=== PATIENT | male | born 1980 | race Caucasian/White ===

== ENCOUNTER 2018-11-26 21:25 | Observation (INO) ==
[2018-11-26] MEDS ORDERED: Nitroglycerin 0.4 MG TAB.SUBL SL PRN (21:44)
--- NOTE | 2018-11-26 21:47 | Emergency Department Note ---
Disposition Clinical Impression: Chest pain Qualifiers: Chest pain type: unspecified Qualified Code(s): R07.9 - Chest pain, unspecified Disposition: Admitted As Inpatient Condition: Fair General Adult HPI - General Stated complaint: Chest Pain Time Seen by Provider: 11/26/18 21:32 Nursing Notes Reviewed: Yes Vital Signs Reviewed: Yes - History of Present Illness HPI Narrative: 38-year-old male presents emergency Department concern for sudden onset of sharp chest pain and generalized weakness. Patient reports that his follow up all had heart attack couple weeks ago. Reports that he experienced an episode of generalized weakness about a week ago. States that he did not have any chest pain at that time. Reports that he is also painting at home. States that he does not typically paint. Patient has past medical history of hypertension, no previous coronary artery disease. He denies any fevers, cough, abdominal pain, nausea, vomiting, diaphoresis. Pain does not radiate anywhere, located on the right side of his chest, reproducible chest wall tenderness to palpation,. - Related Data Home Medications Medication Instructions Recorded Confirmed Lisinopril [Zestril] 40 mg PO DAILY 11/27/18 11/27/18 Allergies Allergy/AdvReac Type Severity Reaction Status Date / Time No Known Allergies Allergy Verified 11/26/18 21:53 All systems ED: reviewed and negative except as stated. Review of Systems: As Per HPI Constitutional: Denies: fever Cardiovascular: Reports: chest pain Respiratory: Denies: dyspnea Gastrointestinal: Denies: abdominal pain, nausea, vomiting Genitourinary: Denies: dysuria Musculoskeletal: Denies: back pain Neurological: Reports: headache, weakness Past Medical History - Past Medical History Attestation: Yes The following information was validated with the patient. Physical Exam - General Limitations: no limitations General appearance: alert, in no apparent distress - Head Head exam: normocephalic - Eye Eye exam: Present: EOMI - ENT ENT exam: mucous membranes moist - Neck Neck exam: Present: trachea midline - Chest Chest inspection: Present: symmetric chest wall rise - Respiratory Respiratory exam: Present: normal lung sounds bilaterally. Absent: respiratory distress, accessory muscle use - Cardiovascular Cardiovascular exam: Present: regular rate, normal rhythm, normal heart sounds - Abdominal Exam Abdominal exam: Present: soft, Non-Tender. Absent: distention, guarding, rebound, rigidity - Extremities Exam Extremities exam: Present: normal capillary refill - Back Exam Back exam: Present: full ROM - Neurological Exam Neurological exam: Present: alert, oriented X3 - Psychiatric Psychiatric exam: Present: normal affect, normal mood - Skin Skin exam: Present: warm, dry, intact, normal color. Absent: rash Course Vital Signs Temperature 98.2 F 11/26/18 21:41 Pulse Rate 79 11/26/18 21:41 Respiratory Rate 20 11/26/18 21:41 Blood Pressure 162/83 11/26/18 21:41 O2 Sat by Pulse Oximetry 100 11/26/18 21:41 Temperature 98.6 F 11/27/18 03:06 Pulse Rate 52 11/27/18 03:06 Respiratory Rate 16 11/27/18 03:06 Blood Pressure 128/75 11/27/18 03:06 O2 Sat by Pulse Oximetry 98 11/27/18 03:06 Oxygen Delivery Oxygen Delivery Room Air Medical Decision Making - MDM Narrative Medical decision making narrative: 38-year-old male presents emergency department with concern for sudden onset c hest pain prior to arrival. History of hypertension. Patient's chest pain responded to nitroglycerin completely. EKG did not show any ischemic changes. Troponin was negative. We did obtain a d-dimer and this was negative, chest x- ray did not reveal any cardiopulmonary abnormality. Due to concerns for recurrence of his chest pain, patient admitted to the hospital. Stable not in acute distress at the time of admission. - Lab Data Result diagrams: 11/26/18 22:05 11/26/18 22:05 Lab Results 11/26/18 11/26/18 11/26/18 Range/Units 22:05 22:05 22:05 WBC 3.7 L (4.3-11.1) K/mcL RBC 5.31 (4.19-5.50) M/mcL Hgb 14.8 (12.9-16.9) g/dL Hct 43.5 (37.5-50.1) % MCV 81.9 L (83.0-100.0) fL MCH 27.9 L (28.0-33.3) pg MCHC 34.0 (31.6-35.5) g/dL RDW 12.9 (11.5-14.5) % Plt Count 141 (140-400) K/mcL MPV 10.1 (9.4-12.4) fL Immature Gran % 0.5 (0-4) % Seg Neutrophils % 56.4 % Lymphocytes % 33.7 % Monocytes % 6.2 % Eosinophils % 2.7 % Basophils % 0.5 % Neutrophils # 2.1 (1.6-8.9) K/mcL Lymphocytes # 1.3 (0.6-4.6) K/mcL Monocytes # 0.2 (0.0-1.3) K/mcL Eosinophils # 0.1 (0.0-0.6) K/mcL Basophils # 0.0 (0.0-0.2) K/mcL D-Dimer < 215 (0-500) ng/mLFEU Sodium 138 (136-145) mEq/L Potassium 3.3 L (3.5-5.1) mEq/L Chloride 99 (98-107) mEq/L Carbon Dioxide 23 (23-29) mEq/L BUN 20 (6-20) mg/dL Creatinine 1.05 (0.70-1.30) mg/dL Est GFR ( Amer) > 60 (> 60) Est GFR (Non-Af Amer) > 60 (> 60) BUN/Creatinine Ratio 19 (6-26) Glucose 163 H (70-105) mg/dL Calculated Osmolality 292 (280-300) Calcium 8.9 (8.6-10.3) mg/dL Troponin I < 0.03 (< 0.04) ng/mL - EKG Data EKG #1 EKG attestation: Yes I reviewed and interpreted this EKG. EKG results narrative: 21:32 Heart rate 75 bpm, NV interval 179 ms, QRS duration 122 ms, QT [address] changes noted. Attestation Statement - Attestation Attestation: Dr. Ruiz note: Patient seen in conjunction with emergency medicine resident Dr. Tyler Stephenson. Please see his charting for complete documentation. I spent [id number] time with the patient and I agree with the patient's treatment and disposition. Patient complains of diaphoresis and left arm pain at rest while at home somet alexa around 8 PM. Denies such symptoms prior. Vague chest pain in route to the ER which had resolved. No diaphoresis or left arm pain at the time my evaluation. Initial EKG testing and blood work unremarkable. Patient was offered repeat troponin in the ER versus admission versus discharge for ou tpatient stress testing and is very concerned about his condition and is opting for admission to the hospital this time. Admitted pain-free in stable condition. Heart Score - Score History: Highly Suspicious EKG: Normal Age: Less than 45 Risk Factors: 1-2 risk factors Troponin: Less than normal limit HEART Score Total: 3
[2018-11-26] MEDS ORDERED: 0.9 % Sodium Chloride 1,000 ML IVC ONE (21:53)
[2018-11-26 22:24] LABS: Basophils % 0.5 %; Eosinophils # 0.1 K/mcL (0.0-0.6); Eosinophils % 2.7 %; Hematocrit 43.5 % (37.5-50.1); Hemoglobin 14.8 g/dL (12.9-16.9); Immature Granulocytes % 0.5 % (0-4); Lymphocytes # 1.3 K/mcL (0.6-4.6); Lymphocytes % 33.7 %; Mean Corpuscular Hemoglobin 27.9 pg (28.0-33.3); Mean Corpuscular Volume 81.9 fL (83.0-100.0); Mean Platelet Volume 10.1 fL (9.4-12.4); Monocytes # 0.2 K/mcL (0.0-1.3); Monocytes % 6.2 %; Neutrophils # 2.1 K/mcL (1.6-8.9); Platelet Count 141 K/mcL (140-400); Red Blood Count 5.31 M/mcL (4.19-5.50); Red Cell Distribution Width 12.9 % (11.5-14.5); Segmented Neutrophils % 56.4 %
[2018-11-26 22:45] LABS: BUN/Creatinine Ratio 19 (6-26); Blood Urea Nitrogen 20 mg/dL (6-20); Calcium 8.9 mg/dL (8.6-10.3); Carbon Dioxide 23 mEq/L (23-29); Chloride 99 mEq/L (98-107); Glucose 163 mg/dL (70-105); Osmolality,Calculated 292 (280-300); Potassium 3.3 mEq/L (3.5-5.1); Sodium 138 mEq/L (136-145); eGFR For Non-African Americans > 60 (> 60)
[2018-11-26 22:46] LABS: Troponin I < 0.03 ng/mL (< 0.04)
[2018-11-27] MEDS ORDERED: Aspirin 81 MG TAB.CHEW PO STA (02:20)
[2018-11-27] MEDS ORDERED: Naloxone 0.4 MG/ML INJ IVP PRN (02:55)
--- NOTE | 2018-11-27 03:08 | Internal Med History&Physical ---
Date of Encounter: 11/27/18 Time of Encounter: 02:00 Internal Medicine - H&P: HPI Chief complaint: Chest pain Admitted From: Home Plans for Post Hospital Care: Home History of present illness: Mr. Hernandez is a 38 year old male with past medical history significant for hypertension who presents for complaints of sharp substernal 5/10 chest pain while watching TV. States pain originated in his left arm then went to his c hest. Pain was associated with generalized weakness and diaphoresis. Denies any alleviating or exacerbating factors. Symptoms improved after receiving one nitroglycerin and one liter fluids in ER. Currently is pain-free. Currently denies any headache, numbness, tingling, chest pain, shortness of breath, abdominal pain, nausea, bowel or bladder changes. ER reported EKG with no ischemic ST changes noted. ER also obtained chest x-ray which showed no acute abnormality. Denies any previous echocardiogram or stress testing. Follows regularly with his PCP every 6 months for history of hypertension. Denies regularly checking his blood pressures at home. Denies any alcohol, tobacco, or drug use. Denies any significant family history of cardiovascular medical problems. Past Med Surg Social Fam HX - Past Medical History Medical history: hypertension Psychiatric history: no psych history - Past Surgical History Additional surgical history: achilles tendon left foot - Social History Smoking Status: Never smoker Smokeless Tobacco Status: No Alcohol use: none Drug use: none Internal Medicine - H&P: Meds Lisinopril [Zestril] 40 mg PO DAILY 11/27/18 [History] Allergy/AdvReac Type Severity Reaction Status Date / Time No Known Allergies Allergy Verified 11/26/18 21:53 All Systems PM: A 10-system review of systems was performed and is negative for pertinent findings except as documented above in the HPI. - Constitutional Vitals: Temp Pulse Resp BP Pulse Ox 98.2 F 61 16 129/71 96 11/26/18 21:41 11/27/18 02:11 11/27/18 02:17 11/27/18 02:17 11/27/18 02:11 Exam: General: Alert and oriented. Skin:Normal color, no rash, no lesions. HEENT:Pupils equal, round and reactive. Cardiovascular:Normal S1 & S2, no rubs, murmurs or gallops. No JVD. Pulse regular. Lungs:Normal breath sounds, no wheezes or crackles. Abdomen:Soft, non-tender, no rigidity. Normoactive bowel sounds. Extremities:No deformity, no edema or tenderness, no joint swelling or clubbing. Neurological:Normal cognition and motor skills. Pulses:Carotid and radial pulses normal +2. Rest of the physical exam is non contributory. Internal Med - H&P Results - Labs CBC & Chem 7: 11/26/18 22:05 11/26/18 22:05 Labs: Short CBC 11/26/18 Range/Units 22:05 WBC 3.7 L (4.3-11.1) K/mcL Hgb 14.8 (12.9-16.9) g/dL Hct 43.5 (37.5-50.1) % Plt Count 141 (140-400) K/mcL Neutrophils # 2.1 (1.6-8.9) K/mcL BMP 11/26/18 22:05 Sodium 138 Potassium 3.3 L Chloride 99 Carbon Dioxide 23 BUN 20 Creatinine 1.05 Glucose 163 H Calcium 8.9 Cardiac Enzymes 11/26/18 11/27/18 Range/Units 22:05 01:56 Troponin I < 0.03 < 0.03 (< 0.04) ng/mL - Impressions ITS Impressions Chest X-Ray 11/26/18 21:42 IMPRESSION: No acute process. D/ / Aquiles Miranda MD / Aquiles Miranda MD Interpreting Provider: Aquiles Miranda MD Chest X-Ray 11/26/18 23:15 IMPRESSION: No acute abnormality identified. D/ / Rashad Roca MD / Rashad Roca MD Interpreting Provider: Rashad Roca MD - Assessment and Plan (1) Chest pain Current Visit: Yes Status: Acute Assessment and plan: Currently resolved. Continuous quality assurance monitor. Initial troponin in ER negative, serial troponins ordered. Echocardiogram ordered. Cardiac diet. Qualifiers: Chest pain type: unspecified Qualified Code(s): R07.9 - Chest pain, unspec ified (2) Hypokalemia Current Visit: Yes Status: Acute Assessment and plan: Replacement ordered. Repeat labs ordered. (3) Hypertension Current Visit: Yes Status: Chronic Assessment and plan: Continue home medication once verified. Qualifiers: Hypertension type: unspecified Qualified Code(s): I10 - Essential (primary) hypertension - Time Spent With Patient Total time spent is greater than 50% in coordination of care (as documented) at patient's floor/unit and/or counseling patient:
[2018-11-27] MEDS ORDERED: *HR* Heparin 5,000 UNIT/ML VIAL SQ SCH (06:00)
[2018-11-27 09:04] LABS: Basophils % 0.6 %; Eosinophils # 0.1 K/mcL (0.0-0.6); Eosinophils % 2.3 %; Hematocrit 44.4 % (37.5-50.1); Hemoglobin 15.1 g/dL (12.9-16.9); Immature Granulocytes % 0.4 % (0-4); Lymphocytes # 1.4 K/mcL (0.6-4.6); Lymphocytes % 29.4 %; Mean Corpuscular Hemoglobin 28.1 pg (28.0-33.3); Mean Corpuscular Volume 82.7 fL (83.0-100.0); Mean Platelet Volume 10.1 fL (9.4-12.4); Monocytes # 0.3 K/mcL (0.0-1.3); Monocytes % 5.7 %; Neutrophils # 2.9 K/mcL (1.6-8.9); Platelet Count 152 K/mcL (140-400); Red Blood Count 5.37 M/mcL (4.19-5.50); Segmented Neutrophils % 61.6 %
[2018-11-27 09:33] LABS: BUN/Creatinine Ratio 18 (6-26); Blood Urea Nitrogen 16 mg/dL (6-20); Calcium 9.2 mg/dL (8.6-10.3); Carbon Dioxide 25 mEq/L (23-29); Chloride 104 mEq/L (98-107); Glucose 92 mg/dL (70-105); Osmolality,Calculated 285 (280-300); Potassium 4.2 mEq/L (3.5-5.1); Sodium 137 mEq/L (136-145); eGFR For Non-African Americans > 60 (> 60)
[2018-11-27] MEDS ORDERED: Regadenoson 0.4 MG/5 ML SYRINGE IVP ONE (10:08)
--- NOTE | 2018-11-27 11:16 | Electrocardiograph Report ---
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
[2018-11-27 12:12] VITALS: BP 143/83
--- NOTE | 2018-11-27 13:40 | Discharge Summary ---
- NOTES TO OUTPATIENT PROVIDER Notes to Outpatient Provider: Patient with a history of hypertension was hospitalized here after presenting with complaints of substernal chest pain and left arm pain. He was monitored with telemetry. EKG did not show any acute changes. Troponins were negative. He then underwent exercise nuclear stress test. This was negative for ischemia. Clinically stable to be discharged home to follow-up outpatient with PCP. Orders not resulted at time of discharge: Pending orders 11/27/18 08:05 NM jamila perf SPECT multi [NM] Routine Date of Encounter: 11/27/18 Time of Encounter: 13:38 - Discharge Diagnosis (1) Chest pain Priority: Primary Status: Resolved Qualifiers: Chest pain type: precordial pain Qualified Code(s): R07.2 - Precordial pain (2) Hypokalemia Priority: Secondary Status: Acute (3) Hypertension Priority: Secondary Status: Chronic Qualifiers: Hypertension type: essential hypertension Qualified Code(s): I10 - Essential (primary) hypertension Hospital course: Mr. Hernandez is a 38 year old male Patient with a history of hypertension was hospitalized here after presenting with complaints of substernal chest pain and left arm pain. He was monitored with telemetry. EKG did not show any acute changes. Troponins were negative. He then underwent exercise nuclear stress test. This was negative for ischemia. Clinically stable to be discharged home to follow-up outpatient with PCP. Discharge discussed with: patient - Time Spent with Patient Total time spent providing and/or coordinating discharge services: Time spent: Less than 30 minutes (25 min) - Discharge Medications Prescriptions: Continued Lisinopril [Zestril] 40 mg PO DAILY Home Medications: Lisinopril [Zestril] 40 mg PO DAILY 11/27/18 [History] Allergies/Adverse Reactions: Allergy/AdvReac Type Severity Reaction Status Date / Time No Known Allergies Allergy Verified 11/26/18 21:53 Date of admission: 11/27/18 01:52 Primary care physician: Rahel Harmon Discharging clinician: Shawanda Elliott Anticipated date of discharge: 11/27/18 - Constitutional Vitals: Temp Pulse Resp BP Pulse Ox 98.8 F 76 14 143/83 96 11/27/18 12:10 11/27/18 12:10 11/27/18 12:10 11/27/18 12:10 11/27/18 12:10 General appearance: Present: A&O X 3, pleasant, no acute distress, answers questions appropriately Exam: . - Respiratory Respiratory exam: Present: CTAB. Absent: accessory muscle use, rales, rhonchi, wheezes - Cardiovascular Cardiovascular exam: Present: RRR, +S1, +S2. Absent: diastolic murmur, gallop, rubs, systolic murmur - Patient Status Disposition: Home, Self-Care Condition: Good Functional capacity at discharge: independent ambulation Overall status at discharge: patient is back to baseline - Discharge Instructions Instructions: Chest Pain (DC) Follow Up With: Rahel Harmon CNP [Primary Care Provider] - (in 1-2 weeks) Forms: ED Satisfaction Letter - Diet and Activity Activity: increase activity as tolerated Diet: low fat, low cholesterol, low salt diet
== END 2018-11-27 14:01 | disposition home or self-care (01) ==
LOC: 3BNU 21:25 → EMEROOARM 21:25 → SUATTDRO 11-27 01:52 → 3BNU 11-27 02:25
PROVIDERS: ADMIT Family Medicine; ATTEND Internal Medicine

== ENCOUNTER 2020-10-13 13:12 | Observation (INO) ==
[2020-10-13] MEDS ORDERED: 0.9 % Sodium Chloride 1,000 ML IVC ONE (13:21)
[2020-10-13] MEDS ORDERED: Ondansetron 4 MG/2 ML VIAL IVP ONE (13:22)
[2020-10-13 13:45] LABS: Basophils % 0.7 %; Eosinophils # 0.1 K/mcL (0.0-0.6); Eosinophils % 2.2 %; Hematocrit 46.3 % (37.5-50.1); Hemoglobin 15.6 g/dL (12.9-16.9); Immature Granulocytes % 0.4 % (0-4); Lymphocytes # 1.3 K/mcL (0.6-4.6); Lymphocytes % 29.2 %; Mean Corpuscular HGB Conc 33.7 g/dL (31.6-35.5); Mean Corpuscular Volume 80.1 fL (83.0-100.0); Mean Platelet Volume 9.6 fL (9.4-12.4); Monocytes # 0.2 K/mcL (0.0-1.3); Monocytes % 5.4 %; Neutrophils # 2.8 K/mcL (1.6-8.9); Platelet Count 136 K/mcL (140-400); Red Blood Count 5.78 M/mcL (4.19-5.50); Red Cell Distribution Width 12.4 % (11.5-14.5); Segmented Neutrophils % 62.1 %; White Blood Count 4.5 K/mcL (4.3-11.1)
[2020-10-13 13:53] LABS: INR 1.1; Prothrombin Time 13.2 Seconds (9.4-12.1)
[2020-10-13 13:56] LABS: Activated Partial Thrombo Time 26.6 Seconds (26.0-36.0)
[2020-10-13 14:06] LABS: Alanine Aminotransferase 38 Units/L (7-52); Albumin 4.4 g/dL (3.5-5.7); Albumin/Globulin Ratio 1.8 (1.1-2.2); Alkaline Phosphatase 94 Units/L (34-104); Aspartate Amino Transferase 25 Units/L (13-39); BUN/Creatinine Ratio 16 (6-26); Bilirubin,Total 0.7 mg/dL (0.3-1.0); Blood Urea Nitrogen 15 mg/dL (6-20); Calcium 8.9 mg/dL (8.6-10.3); Carbon Dioxide 21 mEq/L (23-29); Chloride 101 mEq/L (98-107); Globulin 2.4 g/dL (2.4-3.5); Glucose 121 mg/dL (70-105); Osmolality,Calculated 284 (280-300); Potassium 3.3 mEq/L (3.5-5.1); Sodium 136 mEq/L (136-145); Total Protein 6.8 g/dL (6.4-8.9); Troponin I < 0.03 ng/mL (< 0.04); eGFR For African Americans > 60 (> 60); eGFR For Non-African Americans > 60 (> 60)
[2020-10-13 14:23] LABS: Bilirubin,Urine Negative (Negative); Blood,Urine Negative (Negative); Clarity,Urine Clear (Clear); Color,Urine Light-Yellow (Yellow); Glucose,Urine (UA) Normal (Normal); Ketones,Urine Negative (Negative); Leukocyte Esterase,Urine Negative (Negative); Nitrite,Urine Negative (Negative); PH,Urine 6.5 pH Units (5.0-8.0); Protein,Urine Negative (Neg-Trace); Specific Gravity,Urine 1.015 (1.010-1.025); Urobilinogen,Urine Normal (Normal)
[2020-10-13] MEDS ORDERED: Aspirin 325 MG TABLET PO ONE (14:28)
[2020-10-13] MEDS ORDERED: Naloxone 0.4 MG/ML INJ IVP PRN (16:08)
[2020-10-13] MEDS ORDERED: Ondansetron 4 MG/2 ML VIAL IVP PRN (16:08)
[2020-10-13] MEDS ORDERED: Perflutren Lipid Microsphere 1.3 ML in 0.9 % Sodium Chloride 8.7 ML IVP PRN (16:16)
[2020-10-13 16:35] LABS: Thyroid Stimulating Hormone 1.865 mcIU/mL (0.340-5.600)
[2020-10-13 17:09] LABS: Amphetamine Screen,Urine Negative ng/mL (Cutoff=1000); Barbiturate Screen,Urine Negative ng/mL (Cutoff=200); Benzodiazepines Screen,Urine Negative ng/mL (Cutoff=200); Cannabinoid Screen,Urine Negative ng/mL (Cutoff = 50); Cocaine Screen,Urine Negative ng/mL (Cutoff= 300); Opiate Screen,Urine Negative ng/mL (Cutoff=300); Phencyclidine Screen,Urine Negative ng/mL (Cutoff=25)
[2020-10-13] MEDS ORDERED: *HR* Atropine Sulfate 1 MG/10 ML SYRINGE IVP PRN (18:23)
[2020-10-13 19:17] LABS: ABG Base Excess 0 mEq/L (-2 to 3); ABG HCO3 26 mEq/L (21-27); ABG Oxygen Saturation 98 % (95-98); ABG PCO2 47 mmHg (35-45); ABG PH 7.35 pH Units (7.32-7.45); ABG PO2 107 mmHg (85-104); ABG TCO2 28 mEq/L (20-26)
[2020-10-14 01:00] LABS: Basophils % 0.1 %; Eosinophils % 0.1 %; Hemoglobin 15.2 g/dL (12.9-16.9); Immature Granulocytes % 0.3 % (0-4); Lymphocytes # 0.7 K/mcL (0.6-4.6); Lymphocytes % 8.9 %; Mean Corpuscular Hemoglobin 27.1 pg (28.0-33.3); Mean Platelet Volume 9.8 fL (9.4-12.4); Monocytes # 0.2 K/mcL (0.0-1.3); Neutrophils # 6.5 K/mcL (1.6-8.9); Platelet Count 178 K/mcL (140-400); Red Blood Count 5.61 M/mcL (4.19-5.50); Red Cell Distribution Width 12.5 % (11.5-14.5); Segmented Neutrophils % 87.6 %; White Blood Count 7.4 K/mcL (4.3-11.1)
[2020-10-14 01:25] LABS: Alanine Aminotransferase 35 Units/L (7-52); Albumin 4.2 g/dL (3.5-5.7); Albumin/Globulin Ratio 1.8 (1.1-2.2); Alkaline Phosphatase 83 Units/L (34-104); Aspartate Amino Transferase 20 Units/L (13-39); BUN/Creatinine Ratio 16 (6-26); Bilirubin,Total 0.7 mg/dL (0.3-1.0); Blood Urea Nitrogen 13 mg/dL (6-20); Calcium 8.7 mg/dL (8.6-10.3); Carbon Dioxide 23 mEq/L (23-29); Chloride 102 mEq/L (98-107); Chol/HDL Ratio 4.7 (0-4.9); Cholesterol 159 mg/dL (< 200); Globulin 2.3 g/dL (2.4-3.5); Glucose 126 mg/dL (70-105); HDL Cholesterol 34 mg/dL (40-59); LDL Cholesterol,Calculated 112 mg/dL (< 100); Magnesium 1.9 mg/dL (1.6-2.6); Osmolality,Calculated 282 (280-300); Potassium 4.5 mEq/L (3.5-5.1); Sodium 135 mEq/L (136-145); Total Protein 6.5 g/dL (6.4-8.9); Triglycerides 66 mg/dL (< 150); eGFR For African Americans > 60 (> 60); eGFR For Non-African Americans > 60 (> 60)
[2020-10-14] MEDS: lisinopriL 20 MG TABLET PO SCH (08:45)
[2020-10-14] MEDS ORDERED: Aspirin 81 MG TAB.CHEW PO SCH (09:00)
[2020-10-15] MEDS ORDERED: Regadenoson 0.4 MG/5 ML SYRINGE IVP ONE (07:19)
[2020-10-15] MEDS: lisinopriL 20 MG TABLET PO SCH (11:05)
[2020-10-15 16:53] VITALS: BP 133/77
== END 2020-10-15 17:50 | disposition home or self-care (01) ==
LOC: EMEROOARM 13:12 → 3BNU 13:12 → SUATTDRO 15:19 → 2NNU 15:37
PROVIDERS: ADMIT Internal Medicine; ATTEND Internal Medicine